=== PATIENT | male | born 1960 | race Two or more races ===

== ENCOUNTER 2018-01-26 16:29 | Emergency (ER) | payer OTHER ==
[~2018-01-26] VITALS: Ht 188 cm; Wt 95.3 kg
--- NOTE | 2018-01-26 16:35 | NUR ---
BIBRA 58 FROM HOMELESS HALFWAY FOR GLF, +DROWSY, ADMITS TO DRINKING ETOH TODAY, FN=280 IN THE FIELD. PATIENT IS SLEEPY AND LETHARGIC AT THIS TIME. BREATHING EVEN AND UNLABORED. NO SOB, NAD, VITALS STABLE. SAFETY AND COMFORT MEASURES IN PLACE. AWAITING MD ORDERS.
--- NOTE | 2018-01-26 17:10 | NUR ---
NEW IV STARTED ON LFA, 20G.
[2018-01-26 17:21] LABS: BASOPHILS % (AUTO) 0.6 % (0.0-2.0); EOSINOPHILS % (AUTO) 2.5 % (0.0-6.0); HEMATOCRIT 39 % (39-51); HEMOGLOBIN 13.3 g/dL (13.5-17.5); LYMPHOCYTES # (AUTO) 0.9 /CMM (0.8-4.8); LYMPHOCYTES % (AUTO) 20.4 % (20.0-44.0); MEAN CORPUSCULAR HGB CONC 34 g/dl (31.0-36.0); MEAN CORPUSCULAR VOLUME 92 fL (80-96); MONOCYTES # (AUTO) 0.6 /CMM (0.1-1.30); MONOCYTES % (AUTO) 12.7 % (2.0-12.0); NEUTROPHILS # (AUTO) 2.8 /CMM (1.8-8.9); NEUTROPHILS % (AUTO) 63.8 % (43.0-81.0); PLATELET COUNT (AUTO) 206 /CMM (150-450); RDW COEFFICIENT OF VARIATION 15.7 (11.5-15.0); RED BLOOD CELL COUNT(AUTO) 4.27 MIL/uL (4.5-6.0); WHITE BLOOD COUNT (AUTO) 4.4 K/uL (4.3-11.0)
--- NOTE | 2018-01-26 17:25 | NUR ---
PATIENT TAKEN TO RADIOLOGY VIA STRETCHER.
[2018-01-26 17:32] LABS: CALCIUM, SERUM 8.1 mg/dL (8.5-10.1); CARBON DIOXIDE 24 mmol/L (21-32); CHLORIDE 105 mmol/L (98-107); CREATININE 0.9 mg/dL (0.6-1.3); GLUCOSE 106 mg/dL (74-106); POTASSIUM 3.4 mmol/L (3.5-5.1); SODIUM SERUM 137 mmol/L (136-145); UREA NITROGEN, BLOOD 10 mg/dL (7-18)
[2018-01-26 17:35] LABS: INR 1.17 (0.85-1.15)
[2018-01-26 17:38] LABS: ALANINE AMINOTRANSFERASE 50 U/L (12-78); ALBUMIN 2.8 g/dL (3.4-5.0); ALCOHOL, BLOOD < 3 mg/dL (0-0); ALKALINE PHOSPHATASE 77 U/L (46-116); ASPARTATE AMINOTRANSFERASE 69 U/L (15-37); BILIRUBIN,DIRECT 0.5 mg/dL (0.0-0.2); BILIRUBIN,TOTAL 1.4 mg/dL (0.2-1.0)
--- NOTE | 2018-01-26 18:14 | NUR ---
PATIENT UNABLE TO URINATE UP TO THIS POINT IN TIME. OFFERED TO CATH PATIENT, PATIENT REFUSED. MD INFORMED, STATED, OKAY TO HOLD OFF ON URINE AT THIS TIME.
--- NOTE | 2018-01-26 19:10 | NUR ---
REPORT GIVEN TO GINA SPARKS FOR NIRMAL.
--- NOTE | 2018-01-26 21:53 | NUR ---
ALL D/C PAPERWORK GIVEN AND EXAPLINED. PT WILL GO TO [facility] AND STATED "I WILL CALL SOMEONE TO HELP ME GET SOMEWHERE"
[2018-01-26 21:54] VITALS: BP 129/85
== END 2018-01-26 21:55 | disposition home or self-care (01) ==
LOC: ER 16:32
DX: R53.83 Other fatigue (principal); T40.3X5A Adverse effect of methadone, initial encounter; I10 Essential (primary) hypertension; E11.9 Type 2 diabetes mellitus without complications; D64.9 Anemia, unspecified; Y92.89 Other specified places as the place of occurrence of the external cause
CPT/HCPCS: 36415; 70450; 71045; 72125; 80048; 80076; 85025; 85730; 99285; A4606; G0480; Z7610

== ENCOUNTER 2019-04-25 14:37 | Inpatient (IN) | payer OTHER ==
[2019-04-25] MEDS ORDERED: ALBUTEROL FS 2.5 MG/3 ML VIAL.NEB NEB ONE (15:30)
[2019-04-25] MEDS ORDERED: ALBUTEROL FS 2.5 MG/3 ML VIAL.NEB ONE (15:32)
[2019-04-25] MEDS ORDERED: IPRATROPIUM NEB FS 0.5 MG/2.5 ML AMPUL.NEB ONE (15:32)
[2019-04-25] MEDS ORDERED: HYDR-4384 PO (15:35)
[2019-04-25] MEDS ORDERED: MORP100S3 PO (15:35)
[2019-04-25] MEDS ORDERED: ATRO10DR MM (15:51)
[2019-04-25] MEDS ORDERED: NALO4SPR NS (15:51)
[2019-04-25] MEDS ORDERED: ALBU2.5V13 IH (15:51)
[2019-04-25] MEDS ORDERED: POLY17PO4 PO (15:51)
[2019-04-25] MEDS ORDERED: ACET-73 PO (15:51)
[2019-04-25] MEDS ORDERED: DOCU-141 PO (15:51)
[2019-04-25] MEDS ORDERED: FENT1PAT5 TD (15:51)
[2019-04-25] MEDS ORDERED: ONDA4TAB11 PO (15:51)
[2019-04-25] MEDS ORDERED: BISA10SU11 RC (15:51)
[2019-04-25] MEDS ORDERED: LORA0.5T PO (15:51)
[2019-04-25] MEDS ORDERED: SENN-18 PO (15:51)
[2019-04-25] MEDS ORDERED: IPRATROPIUM NEB FS 0.5 MG/2.5 ML AMPUL.NEB NEB ONE (16:00)
[2019-04-25] MEDS ORDERED: ACETAMINOPHEN ES 500 MG TABLET ONE (17:07)
[2019-04-25] MEDS ORDERED: CEFTRIAXONE 1GM BAG (ER ONLY) 50 ML IV ONE ×2 (17:17→17:30)
[2019-04-25] MEDS ORDERED: FUROSEMIDE 20 MG/2 ML VIAL ONE (17:17)
[2019-04-25] MEDS ORDERED: ASPIRIN 325 MG TABLET ONE (17:18)
[2019-04-25] MEDS ORDERED: NITROGLYCERIN PACKET 1 GM PACKET ONE (17:18)
[2019-04-25] MEDS ORDERED: ASPIRIN 325 MG TABLET PO ONE (17:30)
[2019-04-25] MEDS ORDERED: NITROGLYCERIN PACKET 1 GM PACKET TD ONE (17:30)
[2019-04-25] MEDS ORDERED: FUROSEMIDE 40 MG/4 ML VIAL IV ONE (17:30)
[2019-04-25] MEDS ORDERED: AZITHROMYCIN 500 MG in IV D5W 250 ML IV ONE (17:30)
[2019-04-25] MEDS ORDERED: ACETAMINOPHEN ES 500 MG TABLET PO ONE (17:30)
[2019-04-25] MEDS ORDERED: MAG HYDROX/AL HYDROX/SIMETH 30 ML UDC PO PRN (19:00)
[2019-04-25] MEDS ORDERED: ZOLPIDEM TARTRATE 5 MG TABLET PO PRN (19:00)
[2019-04-25] MEDS ORDERED: Z GUARD REMEDY 2 OZ OINT TP PRN (19:00)
[2019-04-25] MEDS ORDERED: ONDANSETRON HCL/PF 4 MG/2 ML VIAL IVP PRN (19:00)
[2019-04-25] MEDS ORDERED: ACETAMINOPHEN 325 MG TABLET PO PRN (19:00)
[2019-04-25] MEDS ORDERED: MAGNESIUM HYDROXIDE 30 ML UDC PO PRN (19:00)
[2019-04-25] MEDS ORDERED: FENTANYL TD PATCH (50 MCG/HR) 50 MCG/HR PATCH.TD72 TD SCH (20:00)
[2019-04-25] MEDS ORDERED: LORAZEPAM 0.5 MG TABLET PO PRN (20:00)
[2019-04-25] MEDS ORDERED: BISACODYL SUPP (10 MG) 10 MG/SUPP.RECT SUPP.RECT RC PRN (20:00)
[2019-04-25] MEDS ORDERED: POLYETHYLENE GLYCOL 3350 17 GM POWD.PACK PO PRN (20:00)
[2019-04-25] MEDS: HYDROCODONE/APAP 5/325MG 1 EACH TABLET PO PRN (20:51)
[2019-04-25] MEDS: ENOXAPARIN SODIUM 30 MG/0.3 ML DISP.SYRIN SQ SCH (20:56)
[2019-04-25] MEDS ORDERED: FUROSEMIDE 20 MG/2 ML VIAL IV ONE (23:00)
[2019-04-26] MEDS: ALBUTEROL FS 2.5 MG/0.5 ML VIAL.NEB IH PRN ×2 (00:13→08:07)
[2019-04-26] MEDS ORDERED: ALBUTEROL FS 2.5 MG/0.5 ML VIAL.NEB NEB ONE (04:30)
[2019-04-26] MEDS: HYDROCODONE/APAP 5/325MG 1 EACH TABLET PO PRN ×4 (04:51→22:04)
[2019-04-26] MEDS: DOCUSATE SODIUM 100 MG CAPSULE PO SCH (08:48)
[2019-04-26] MEDS: FUROSEMIDE 40 MG/4 ML VIAL IV SCH ×2 (08:48→16:48)
[2019-04-26] MEDS: SENNOSIDES 8.6 MG TABLET PO SCH (08:48)
[2019-04-26] MEDS ORDERED: MORPHINE SULFATE SOLN CONCENTRATED 20 MG/ML PO SCH (09:00)
[2019-04-26] MEDS: POTASSIUM CHLORIDE 20 MEQ TAB.PRT.SR PO SCH ×2 (10:46→12:47)
[2019-04-26] MEDS ORDERED: MAGNESIUM OXIDE 400 MG TABLET PO ONE (13:00)
[2019-04-26] MEDS: CEFTRIAXONE 1 G in IV D5W 50 ML IV SCH (15:05)
[2019-04-26] MEDS: AZITHROMYCIN 500 MG in IV D5W 250 ML IV SCH (16:49)
[2019-04-26] MEDS: ENOXAPARIN SODIUM 30 MG/0.3 ML DISP.SYRIN SQ SCH (21:09)
[2019-04-27] MEDS: DOCUSATE SODIUM 100 MG CAPSULE PO SCH (08:39)
[2019-04-27] MEDS: SENNOSIDES 8.6 MG TABLET PO SCH (08:40)
[2019-04-27] MEDS: FUROSEMIDE 40 MG/4 ML VIAL IV SCH ×3 (08:40→17:00)
[2019-04-27] MEDS: HYDROCODONE/APAP 5/325MG 1 EACH TABLET PO PRN ×2 (08:40→21:46)
[2019-04-27] MEDS: MORPHINE SULFATE INJ 2 MG/ML DISP.SYRIN IV PRN ×2 (10:59→15:16)
[2019-04-27] MEDS ORDERED: ENSURE ENLIVE 237 ML LIQUID (VANILLA) PO SCH (13:00)
[2019-04-27] MEDS: CEFTRIAXONE 1 G in IV D5W 50 ML IV SCH (15:15)
[2019-04-27] MEDS: AZITHROMYCIN 500 MG in IV D5W 250 ML IV SCH (16:43)
[2019-04-27] MEDS: Magnesium 1GM/D5W 100ML PREMIX 100 ML IV SCH ×2 (16:43→17:35)
[2019-04-27] MEDS: ENSURE ENLIVE 237 ML LIQUID (VANILLA) PO SCH (18:10)
[2019-04-27] MEDS: ENOXAPARIN SODIUM 30 MG/0.3 ML DISP.SYRIN SQ SCH (21:50)
[2019-04-28] MEDS: HYDROCODONE/APAP 5/325MG 1 EACH TABLET PO PRN (09:41)
[2019-04-28] MEDS: ENSURE ENLIVE 237 ML LIQUID (VANILLA) PO SCH ×3 (09:42→17:54)
[2019-04-28] MEDS: SENNOSIDES 8.6 MG TABLET PO SCH (09:42)
[2019-04-28] MEDS: DOCUSATE SODIUM 100 MG CAPSULE PO SCH (09:42)
[2019-04-28] MEDS: MORPHINE SULFATE INJ 2 MG/ML DISP.SYRIN IV PRN ×3 (12:19→23:11)
[2019-04-28] MEDS: POTASSIUM CHLORIDE 20 MEQ TAB.PRT.SR PO SCH ×2 (12:19→13:06)
[2019-04-28] MEDS: FUROSEMIDE 40 MG/4 ML VIAL IV SCH ×2 (13:06→21:25)
[2019-04-28] MEDS: CEFTRIAXONE 1 G in IV D5W 50 ML IV SCH (14:36)
[2019-04-28] MEDS: AZITHROMYCIN 500 MG in IV D5W 250 ML IV SCH (15:23)
[2019-04-28] MEDS: ENOXAPARIN SODIUM 30 MG/0.3 ML DISP.SYRIN SQ SCH (21:25)
[2019-04-29] MEDS: MORPHINE SULFATE INJ 2 MG/ML DISP.SYRIN IV PRN (06:27)
[2019-04-29] MEDS: ENSURE ENLIVE 237 ML LIQUID (VANILLA) PO SCH ×3 (08:24→16:50)
[2019-04-29] MEDS: DOCUSATE SODIUM 100 MG CAPSULE PO SCH ×2 (08:39→09:00)
[2019-04-29] MEDS: FUROSEMIDE 40 MG/4 ML VIAL IV SCH ×2 (08:40→09:00)
[2019-04-29] MEDS: SENNOSIDES 8.6 MG TABLET PO SCH ×2 (08:40→09:00)
[2019-04-29] MEDS ORDERED: FURO-145 PO (11:24)
[2019-04-29] MEDS ORDERED: AZITHROMYCIN 250 MG TABLET PO SCH (16:00)
[2019-04-29] MEDS: HYDROCODONE/APAP 5/325MG 1 EACH TABLET PO PRN (18:37)
[2019-04-30] MEDS ORDERED: FUROSEMIDE 40 MG/4 ML VIAL IV SCH (09:00)
== END 2019-04-29 20:26 | disposition hospice, home (50) | DRG 133 ==
DX: J96.01 Acute respiratory failure with hypoxia (principal); N17.0 Acute kidney failure with tubular necrosis; I50.33 Acute on chronic diastolic (congestive) heart failure; J18.9 Pneumonia, unspecified organism; C16.9 Malignant neoplasm of stomach, unspecified; C78.00 Secondary malignant neoplasm of unspecified lung; E87.1 Hypo-osmolality and hyponatremia; J44.0 Chronic obstructive pulmonary disease with (acute) lower respiratory infection; D69.6 Thrombocytopenia, unspecified; J44.9 Chronic obstructive pulmonary disease, unspecified; D63.8 Anemia in other chronic diseases classified elsewhere; I11.0 Hypertensive heart disease with heart failure; E11.9 Type 2 diabetes mellitus without complications; I10 Essential (primary) hypertension; E87.6 Hypokalemia; I25.10 Atherosclerotic heart disease of native coronary artery without angina pectoris; I25.2 Old myocardial infarction; Z51.5 Encounter for palliative care